=== PATIENT | male | born 1935 ===

== ENCOUNTER 2019-01-06 05:55 | Day surgery (SDC) | payer OTHER ==
[~2019-01-06 05:55] MED LIST: ALLOPURINOL100 MG PO; CARDURA1 MG PO; DIOVAN; DIOVAN160 M1; JENTADUETO 2.51 EAC2 PO; LOSARTAN-HCTZ1 EAC2 PO; METFORMIN HCL500 MG PO; PANTOPRAZOLE SO20 MG PO; RANITIDINE HCL300 MG PO; SYNJARDY 5-1,01 EACH PO; ULTRACET PO; ZOCOR20 MG PO; [UNRECOGNIZED DRUG - OTHER] PO
[2019-01-06] MEDS ORDERED: ULTRACET PO (11:43)
== END 2019-01-06 15:25 | disposition home or self-care (01) ==
LOC: CIR.AMB 05:55
DX: K40.90 Unilateral inguinal hernia, without obstruction or gangrene, not specified as recurrent (principal); D17.1 Benign lipomatous neoplasm of skin and subcutaneous tissue of trunk